=== PATIENT | female | born 1985 | race Caucasian/White ===

== ENCOUNTER 2016-10-24 19:10 | Emergency (ER) | payer OTHER ==
[~2016-10-24 19:10] MED LIST: IBUP80TA PO; PRENTAB9 PO; TYLE325T5 PO
[2016-10-24] MEDS ORDERED: ACETAMINOPHEN 325 MG TAB As Ordered ONE (20:37)
[2016-10-24] MEDS ORDERED: diphenhydrAMINE INJ 50MG/ML VIAL (J1200) As Ordered ONE (20:38)
[2016-10-24] MEDS ORDERED: methylPREDNISolone INJ 125 MG/2 ML VIAL (J2930) As Ordered ONE (20:38)
[2016-10-24] MEDS ORDERED: FAMOTIDINE INJ 20MG/2ML VIAL (S0028) As Ordered ONE (20:38)
[2016-10-24 21:25] LABS: BASO % 0.1 % (0.0-1.0); EOS % 0.7 % (0.0-3.0); LARGE UNSTAINED CELL # 0.1 K/mm3 (0.0-0.4); LARGE UNSTAINED CELL % 2.1 % (0.0-4.0); LYMPH # 1.4 K/mm3 (1.5-6.5); LYMPH % 21.4 % (24.0-44.0); MEAN CORPUSCULAR HEMOGLOBIN 30.3 pg (27.0-33.0); MEAN CORPUSCULAR HGB CONC 33.6 g/dl (32.0-36.5); MEAN CORPUSCULAR VOLUME 90.1 fl (80.0-96.0); MONO # 0.4 K/mm3 (0.0-0.8); MONO % 6.1 % (0.0-5.0); NEUTROPHILS # 4.6 K/mm3 (1.8-7.7); NEUTROPHILS % 69.5 % (36.0-66.0); PLATELET COUNT, AUTOMATED 220 k/mm3 (150-450); RED CELL DISTRIBUTION WIDTH 12.5 % (11.5-14.5); WHITE BLOOD COUNT 6.6 K/mm3 (4.0-10.0)
[2016-10-24 22:27] LABS: ANION GAP 10 MEQ/L (8-16); BLOOD UREA NITROGEN 12 MG/DL (7-18); CALCIUM LEVEL 8.3 MG/DL (8.5-10.1); CARBON DIOXIDE LEVEL 24 MEQ/L (21-32); CHLORIDE LEVEL 104 MEQ/L (98-107); CREATININE FOR GFR 0.91 MG/DL (0.55-1.02); GLOMERULAR FILTRATION RATE > 60.0 (>60); GLUCOSE, FASTING 93 MG/DL (70-105); POTASSIUM SERUM 3.7 MEQ/L (3.5-5.1); SODIUM LEVEL 138 MEQ/L (136-145)
--- NOTE | 2016-10-24 22:53 | EDDOCDS ---
Nurse's Notes [facility] Name: Kalee Betts Age: 31 yrs Sex: Female : 1985 Arrival Date: 10/24/2016 Time: 19:10 Bed 15 Private MD: [facility] Diagnosis: Urticaria;Acute upper respiratory infection, unspecified Presentation: 10/24 19:17 Presenting complaint: Patient states: Patient here for hives. Patient reports chest is jmb tight and hurts to breathe. Patient reports that she is having a congested cough. Adult Sepsis Screening: The patient does not have new or worsening altered mentation. Patient's respiratory rate is less than 22. Systolic blood pressure is greater than 100. Patient has a qSOFA score of 0- Negative Sepsis Screen. Suicide/Homicide risk assessment- the patient denies having any suicidal and/or homicidal ideations and does not present with any other emotional, behavioral or mental health complaints. Status: Patient is not a sales agent financial report service or dependent. Transition of care: patient was not received from another setting of care. 19:17 Acuity: ERNESTINA Level 4 [facility] 19:17 Method Of Arrival: Walkin/Carried/Asstd [facility] Triage Assessment: 19:19 General: Appears in no apparent distress, Behavior is appropriate for age, cooperative. b Pain: Denies pain. Pt Declines HIV testing. Neurological: Level of Consciousness is awake, alert, obeys commands, Oriented to person, place, time, Speech is normal, Facial symmetry appears normal, Facial symmetry: tongue is midline. Respiratory: Airway is patent Respiratory effort is even, unlabored, Respiratory pattern is regular, symmetrical. GI: Abdomen is non- distended. Derm: Skin is pink, warm & dry. Musculoskeletal: Range of motion intact in all extremities. 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 none - PMHx: Asthma; - PSHx: Oophorectomy - unilateral; LEEP Procedure; - Social history: Smoking status: Patient uses tobacco products, heavy tobacco smoker. No barriers to communication noted, The patient speaks fluent Sudanese, Speaks appropriately for age. - Family history: Pertinent for Daughter with similar symptoms.. - : The pt / caregiver states he / she is not on anticoagulants. Home medication list is obtained from the patient. - Exposure Risk Screening:: None identified. Screenin:32 Screening information is obtained from the patient. Fall risk: No risks identified. mv5 Assistance ADL's: requires no assistance with activities of daily living. Abuse/DV Screen: The patient / caregiver reports he/she is: not in a situation that causes fear, pain or injury. Nutritional screening: No deficits noted. Advance Directives: There is no active DNR order. home support is adequate. Assessment: 20:32 General: Appears in no apparent distress, well nourished, well groomed, Behavior is mv5 cooperative, pleasant. Neurological: Level of Consciousness is awake, alert, Oriented to person, place, time. Cardiovascular: Capillary refill < 3 seconds Heart tones S1 S2 present. Respiratory: Airway is patent Respiratory effort is even, unlabored, Respiratory pattern is regular, symmetrical, Breath sounds are clear bilaterally. GI: No deficits noted. : No deficits noted. 21:45 General: Appears in no apparent distress. mv5 22:02 General: Appears in no apparent distress, Pt resting, family at bedside. MD in to mv5 discuss findings and POC. Awaiting complete lab results.. Vital Signs: 19:12 BP 134 / 76; Pulse 97; Resp 18; Temp 101.7(O); Pulse Ox 99% on R/A; Weight 74.84 kg; dem1 Height 5 ft. 8 in. (172.72 cm); Pain 5/10; 22:01 BP 99 / 52; Pulse 77; Resp 16; Temp 99.7(TE); Pulse Ox 99% ; mv5 19:12 Body Mass Index 25.09 (74.84 kg, 172.72 cm) [facility] Vitals: 19:12 Log In Time: October 24, 2016 at 19:00. [facility] ED Course: 19:12 Patient visited by Esequiel Meyers. dem1 19:12 [facility] is Private Physician. dem1 19:12 Patient moved to Waiting dem1 19:13 Patient moved to Pre R[facility] 19:18 Triage Initiated jmb 20:04 Charleen Carey,RN is Primary Nurse. kc3 20:04 Mikael Samayoa MD is Attending Physician. br1 20:04 Patient moved to [facility] 20:27 Patient visited by Mikael Samayoa MD. br1 20:32 The patient / caregiver is instructed regarding the plan of care and ED course. mv5 21:12 BMP Sent. mv5 21:12 CBC with Diff Sent. mv5 21:12 Inserted saline lock: 20 gauge in right antecubital area and blood collected. The mv5 patient tolerated the procedure well. 21:17 Patient moved to Radiology mino 21:19 Patient moved to 15 mino 21:42 [facility] [place] was scanned into [employer] and attached to record. zo 21:45 Patient visited by Charleen Carey RN. mv5 22:01 GATS (NEGATIVE STREP SCREEN) Sent. mv5 22:33 Patient visited by Mikael Samayoa MD. br1 22:37 [facility] is Referral Physician. br1 22:51 No procedures done that require assistance. mv5 22:51 Discontinued intact, bleeding controlled, pressure dressing applied, No mv5 redness/swelling at site. Administered Medications: 20:41 Drug: Acetaminophen 650 mg [acetaminophen 325 mg tablet (2 tabs)] Route: PO; mv5 21:56 Follow up: Response: No Adverse Reaction mv5 21:11 Drug: diphenhydrAMINE 50 mg [diphenhydramine 50 mg/mL injection solution (1 mL)] Route: mv5 IVP; Site: right antecubital; 21:56 Follow up: Response: No Adverse Reaction mv5 21:11 Drug: Famotidine 40 mg [famotidine 10 mg/mL intravenous solution (4 mL)] Route: IVP; mv5 Site: right antecubital; 21:56 Follow up: Response: No Adverse Reaction mv5 21:11 Drug: Solu-MEDROL 125 mg [Solu-Medrol 500 mg intravenous solution (125 mg)] Route: IVP; mv5 Site: right antecubital; 21:56 Follow up: Response: No Adverse Reaction mv5 Order Results: Lab Order: CBC with Diff; SPEC'M 10/24/16 20:52 Test: WHITE BLOOD COUNT; Value: 6.6; Range: 4.0-10.0; Units: K/mm3; Status: F Test: RED BLOOD COUNT; Value: 4.66; Range: 4.00-5.40; Units: M/mm3; Status: F Test: HEMOGLOBIN; Value: 14.1; Range: 12.0-16.0; Units: g/dl; Status: F Test: HEMATOCRIT; Value: 42.0; Range: 36.0-47.0; Units: %; Status: F Test: MEAN CORPUSCULAR VOLUME; Value: 90.1; Range: 80.0-96.0; Units: fl; Status: F Test: MEAN CORPUSCULAR HEMOGLOBIN; Value: 30.3; Range: 27.0-33.0; Units: pg; Status: F Test: MEAN CORPUSCULAR HGB CONC; Value: 33.6; Range: 32.0-36.5; Units: g/dl; Status: F Test: RED CELL DISTRIBUTION WIDTH; Value: 12.5; Range: 11.5-14.5; Units: %; Status: F Test: PLATELET COUNT, AUTOMATED; Value: 220; Range: 150-450; Units: k/mm3; Status: F Test: NEUTROPHILS %; Value: 69.5; Range: 36.0-66.0; Abnormal: Above high normal; Units: %; Status: F Test: LYMPH %; Value: 21.4; Range: 24.0-44.0; Abnormal: Below low normal; Units: %; Status: F Test: MONO %; Value: 6.1; Range: 0.0-5.0; Abnormal: Above high normal; Units: %; Status: F Test: EOS %; Value: 0.7; Range: 0.0-3.0; Units: %; Status: F Test: BASO %; Value: 0.1; Range: 0.0-1.0; Units: %; Status: F Test: LARGE UNSTAINED CELL %; Value: 2.1; Range: 0.0-4.0; Units: %; Status: F Test: NEUTROPHILS #; Value: 4.6; Range: 1.8-7.7; Units: K/mm3; Status: F Test: LYMPH #; Value: 1.4; Range: 1.5-6.5; Abnormal: Below low normal; Units: K/mm3; Status: F Test: MONO #; Value: 0.4; Range: 0.0-0.8; Units: K/mm3; Status: F Test: EOS #; Value: 0.0; Range: 0.0-0.50; Units: K/mm3; Status: F Test: BASO #; Value: 0.0; Range: 0.0-0.2; Units: K/mm3; Status: F Test: LARGE UNSTAINED CELL #; Value: 0.1; Range: 0.0-0.4; Units: K/mm3; Status: F Lab Order: BMP; SPEC'M 10/24/16 21:48 Test: GLUCOSE, FASTING; Value: 93; Range: 70-105; Units: MG/DL; Status: F Test: BLOOD UREA NITROGEN; Value: 12; Range: 7-18; Units: MG/DL; Status: F Test: CREATININE FOR GFR; Value: 0.91; Range: 0.55-1.02; Units: MG/DL; Status: F Test: GLOMERULAR FILTRATION RATE; Value: > 60.0; Range: >60; Status: F Test: SODIUM LEVEL; Value: 138; Range: 136-145; Units: MEQ/L; Status: F Test: POTASSIUM SERUM; Value: 3.7; Range: 3.5-5.1; Units: MEQ/L; Status: F Test: CHLORIDE LEVEL; Value: 104; Range: 98-107; Units: MEQ/L; Status: F Test: CARBON DIOXIDE LEVEL; Value: 24; Range: 21-32; Units: MEQ/L; Status: F Test: ANION GAP; Value: 10; Range: 8-16; Units: MEQ/L; Status: F Test: CALCIUM LEVEL; Value: 8.3; Range: 8.5-10.1; Abnormal: Below low normal; Units: MG/DL; Status: F Test Note: ; Units are mL/min/1.73 m2 Chronic Kidney Disease Staging per NKF: Stage I & II GFR >=60 Normal to Mildly Decreased Stage III GFR 30-59 Moderately Decreased Stage IV GFR 15-29 Severely Decreased Stage V GFR <15 Very Little GFR Left ESRD GFR <15 on PACKAGE DYER Lab Order: -Influenza A&B Rapid Antigen - Nose; SPEC'M 10/24/16 20:52 Test: INFLUENZA A RAPID SCR by ICA; Value: INFLUENZA A RESULTS NEGATIVE; Status: F Test: INFLUENZA A RAPID SCR by ICA; Value: Comments:; Status: F Test: INFLUENZA B RAPID SCR by ICA; Value: INFLUENZA B RESULTS NEGATIVE; Status: F Test Note: ; The Influenza test is a direct rapid immunoassay for the qualitative detection of Influenza viral antigen. Cell culture (Viral Culture) testing should be considered to confirm NEGATIVE results and to assist in detecting other viruses that can provide similar clinical symptoms. Please contact the lab within 24 hours ([phone]) if confirmatory testing is desired. Outcome: 22:37 Discharge ordered by Provider. br1 22:51 Discharge Assessment: Patient awake, alert and oriented x 3. No cognitive and/or mv5 functional deficits noted. Patient verbalized understanding of disposition instructions. Discharge Assessment: patient administered narcotics - no. The following High Risk Discharge criteria are identified: None. Discharged to home. Condition: stable. Discharge instructions given to patient, Demonstrated understanding of Pt was receptive of discharge instructions/ teaching. No special radiology studies were completed. Property sent home with patient. 22:52 Patient left the ED. mv5 Signatures: Fazal Ya Zoeann zo Roggie, Brian, MD MD br1 Esequiel Meyers1 Dominik Patel,RN RN zurib Kim Horne,TARYN RN kc3 Charleen Carey,RN RN mv5 MTDD
--- NOTE | 2016-10-24 22:53 | EDDOCDS ---
Physician Documentation [facility] Name: Kalee Betts Age: 31 yrs Sex: Female : 1985 Arrival Date: 10/24/2016 Time: 19:10 Bed 15 Private MD: [facility] Disposition: 10/24/16 22:37 Discharged to Home/Self Care. Impression: Urticaria, Acute upper respiratory infection, unspecified. - Condition is Stable. - Discharge Instructions: Fever, Adult, Hives, Upper Respiratory Infection, Adult. - Prescriptions for Prednisone 20 mg Oral Tablet - take 2 tablets by ORAL route once daily for 4 days; 8 tablet. - Work Release Form - 2 day, Medication Reconciliation, Local Pharmacy Hours form. - Follow up: [facility]; When: 1 - 2 days; Reason: Recheck today's complaints. - Problem is new. - Symptoms have improved. - Notes: You were seen in the ED for your hives and fever with runny nose, sore throat and congestion concerning for upper respiratory infection. Bloodwork along with flu, strep and chest XRay were negative. You were treated and improved with medications. You may return home to continue Benadryl every 6 hours as needed for hives or itching and prednisone daily for 4 more days. You may take Tylenol and Ibuprofen as needed for fever. Return to the ED for any worsening symptoms, uncontrolled fever, swelling of the lips, tongue or throat, trouble breathing or speaking or swallowing, or any other concerns. Call your doctor in the morning to arrange to be seen tomorrow for recheck - a work note has been provided. Historical: - Allergies: Latex; - Home Meds: 1. none - PMHx: Asthma; - PSHx: Oophorectomy - unilateral; LEEP Procedure; - Social history: Smoking status: Patient uses tobacco products, heavy tobacco smoker. No barriers to communication noted, The patient speaks fluent Bulgarian, Speaks appropriately for age. - Family history: Pertinent for Daughter with similar symptoms.. - : The pt / caregiver states he / she is not on anticoagulants. Home medication list is obtained from the patient. - Exposure Risk Screening:: None identified. 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 8 in. (172.72 cm); Pain 5/10; 22:01 BP 99 / 52; Pulse 77; Resp 16; Temp 99.7(TE); Pulse Ox 99% ; mv5 19:12 Body Mass Index 25.09 (74.84 kg, 172.72 cm) dem1 MDM: 20:27 IV Saline Lock ordered. br1 20:27 Acetaminophen Tablet 650 mg PO once ordered. br1 20:27 diphenhydrAMINE 50 mg IVP once ordered. br1 20:28 CBC with Diff Ordered. EDMS 20:28 BMP Ordered. EDMS 20:28 Famotidine 40 mg IVP once ordered. br1 20:28 Solu-MEDROL 125 mg IVP once ordered. br1 20:28 Strep Screen, Nursing ordered. br1 20:29 Chest, 2 View (pa\E\lat) Ordered. EDMS 20:29 -Influenza A&B Rapid Antigen - Nose Ordered. EDMS 21:21 Financial registration complete. zo 21:42 [facility] Payment Agreement was scanned into [employer] and attached to record. zo 21:48 CBC with Diff Reviewed. br1 21:48 -Influenza A&B Rapid Antigen - Nose Reviewed. br1 21:51 Recheck Vital Signs, perform reassessment and enter into [employer] ordered. br1 21:57 GATS (NEGATIVE STREP SCREEN) Ordered. EDMS 22:31 BMP Reviewed. br1 Administered Medications: 20:41 Drug: Acetaminophen 650 mg [acetaminophen 325 mg tablet (2 tabs)] Route: PO; mv5 21:56 Follow up: Response: No Adverse Reaction mv5 21:11 Drug: diphenhydrAMINE 50 mg [diphenhydramine 50 mg/mL injection solution (1 mL)] Route: mv5 IVP; Site: right antecubital; 21:56 Follow up: Response: No Adverse Reaction mv5 21:11 Drug: Famotidine 40 mg [famotidine 10 mg/mL intravenous solution (4 mL)] Route: IVP; mv5 Site: right antecubital; 21:56 Follow up: Response: No Adverse Reaction mv5 21:11 Drug: Solu-MEDROL 125 mg [Solu-Medrol 500 mg intravenous solution (125 mg)] Route: IVP; mv5 Site: right antecubital; 21:56 Follow up: Response: No Adverse Reaction mv5 Signatures: Dispatcher [employer] Surendra Orantes Brian, MD MD br1 Dominik Patel RN RN Charleen Julien RN RN mv5 The chart was reviewed and I authenticate all verbal orders and agree with the evaluation and treatment provided.Attachments: 21:42 [facility] Payment Agreement zo MTDD
--- NOTE | 2016-10-25 01:53 | REP ---
Clinical: Acute cough . Comparison: 05/25/2011 . Technique: PA and lateral. Findings: The mediastinum and cardiac silhouette are normal. The lung feng are clear and without acute consolidation, effusion, or pneumothorax. The skeletal structures are intact and normal. Impression: 1. No acute cardiopulmonary process. Signed by Srinivasa Faith MD 10/25/2016 01:44 A
--- NOTE | 2016-10-26 23:54 | EDDOCDS ---
Nurse's Notes [facility] Name: Kalee Betts Age: 31 yrs Sex: Female : 1985 Arrival Date: 10/24/2016 Time: 19:10 Bed 15 Private MD: [facility] Diagnosis: Urticaria;Acute upper respiratory infection, unspecified Presentation: 10/24 19:17 Presenting complaint: Patient states: Patient here for hives. Patient reports chest is jmb tight and hurts to breathe. Patient reports that she is having a congested cough. Adult Sepsis Screening: The patient does not have new or worsening altered mentation. Patient's respiratory rate is less than 22. Systolic blood pressure is greater than 100. Patient has a qSOFA score of 0- Negative Sepsis Screen. Suicide/Homicide risk assessment- the patient denies having any suicidal and/or homicidal ideations and does not present with any other emotional, behavioral or mental health complaints. Status: Patient is not a surgical services coordinator or dependent. Transition of care: patient was not received from another setting of care. 19:17 Acuity: ERNESTINA Level 4 [facility] 19:17 Method Of Arrival: Walkin/Carried/Asstd [facility] Triage Assessment: 19:19 General: Appears in no apparent distress, Behavior is appropriate for age, cooperative. b Pain: Denies pain. Pt Declines HIV testing. Neurological: Level of Consciousness is awake, alert, obeys commands, Oriented to person, place, time, Speech is normal, Facial symmetry appears normal, Facial symmetry: tongue is midline. Respiratory: Airway is patent Respiratory effort is even, unlabored, Respiratory pattern is regular, symmetrical. GI: Abdomen is non- distended. Derm: Skin is pink, warm & dry. Musculoskeletal: Range of motion intact in all extremities. 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 none - PMHx: Asthma; - PSHx: Oophorectomy - unilateral; LEEP Procedure; - Social history: Smoking status: Patient uses tobacco products, heavy tobacco smoker. No barriers to communication noted, The patient speaks fluent Cape Verdean, Speaks appropriately for age. - Family history: Pertinent for Daughter with similar symptoms.. - : The pt / caregiver states he / she is not on anticoagulants. Home medication list is obtained from the patient. - Exposure Risk Screening:: None identified. Screenin:32 Screening information is obtained from the patient. Fall risk: No risks identified. mv5 Assistance ADL's: requires no assistance with activities of daily living. Abuse/DV Screen: The patient / caregiver reports he/she is: not in a situation that causes fear, pain or injury. Nutritional screening: No deficits noted. Advance Directives: There is no active DNR order. home support is adequate. Assessment: 20:32 General: Appears in no apparent distress, well nourished, well groomed, Behavior is mv5 cooperative, pleasant. Neurological: Level of Consciousness is awake, alert, Oriented to person, place, time. Cardiovascular: Capillary refill < 3 seconds Heart tones S1 S2 present. Respiratory: Airway is patent Respiratory effort is even, unlabored, Respiratory pattern is regular, symmetrical, Breath sounds are clear bilaterally. GI: No deficits noted. : No deficits noted. 21:45 General: Appears in no apparent distress. mv5 22:02 General: Appears in no apparent distress, Pt resting, family at bedside. MD in to mv5 discuss findings and POC. Awaiting complete lab results.. Vital Signs: 19:12 BP 134 / 76; Pulse 97; Resp 18; Temp 101.7(O); Pulse Ox 99% on R/A; Weight 74.84 kg; dem1 Height 5 ft. 8 in. (172.72 cm); Pain 5/10; 22:01 BP 99 / 52; Pulse 77; Resp 16; Temp 99.7(TE); Pulse Ox 99% ; mv5 19:12 Body Mass Index 25.09 (74.84 kg, 172.72 cm) [facility] Vitals: 19:12 Log In Time: October 24, 2016 at 19:00. [facility] ED Course: 19:12 Patient visited by Esequiel Meyers. dem1 19:12 [facility] is Private Physician. dem1 19:12 Patient moved to Waiting dem1 19:13 Patient moved to Pre RCE [facility]1 19:18 Triage Initiated jmb 20:04 Charleen Carey,RN is Primary Nurse. kc3 20:04 Mikael Samayoa MD is Attending Physician. br1 20:04 Patient moved to [facility] 20:27 Patient visited by Mikael Samayoa MD. br1 20:32 The patient / caregiver is instructed regarding the plan of care and ED course. mv5 21:12 BMP Sent. mv5 21:12 CBC with Diff Sent. mv5 21:12 Inserted saline lock: 20 gauge in right antecubital area and blood collected. The mv5 patient tolerated the procedure well. 21:17 Patient moved to Radiology mino 21:19 Patient moved to 15 mino 21:42 [facility] Payment Agreement was scanned into [employer] and attached to record. zo 21:45 Patient visited by Charleen aCrey RN. mv5 22:01 GATS (NEGATIVE STREP SCREEN) Sent. mv5 22:33 Patient visited by Mikael Samayoa MD. br1 22:37 [facility] is Referral Physician. br1 22:51 No procedures done that require assistance. mv5 22:51 Discontinued intact, bleeding controlled, pressure dressing applied, No mv5 redness/swelling at site. 0207 02:05 Chest, 2 View (pa\E\lat) Returned. EDMS 12:47 T-Sheet-- Draft Copy was scanned into [employer] and attached to record. gb Administered Medications: 02 20:41 Drug: Acetaminophen 650 mg [acetaminophen 325 mg tablet (2 tabs)] Route: PO; mv5 21:56 Follow up: Response: No Adverse Reaction mv5 21:11 Drug: diphenhydrAMINE 50 mg [diphenhydramine 50 mg/mL injection solution (1 mL)] Route: mv5 IVP; Site: right antecubital; 21:56 Follow up: Response: No Adverse Reaction mv5 21:11 Drug: Famotidine 40 mg [famotidine 10 mg/mL intravenous solution (4 mL)] Route: IVP; mv5 Site: right antecubital; 21:56 Follow up: Response: No Adverse Reaction mv5 21:11 Drug: Solu-MEDROL 125 mg [Solu-Medrol 500 mg intravenous solution (125 mg)] Route: IVP; mv5 Site: right antecubital; 21:56 Follow up: Response: No Adverse Reaction mv5 Order Results: Lab Order: CBC with Diff; SPEC'M 10/24/16 20:52 Test: WHITE BLOOD COUNT; Value: 6.6; Range: 4.0-10.0; Units: K/mm3; Status: F Test: RED BLOOD COUNT; Value: 4.66; Range: 4.00-5.40; Units: M/mm3; Status: F Test: HEMOGLOBIN; Value: 14.1; Range: 12.0-16.0; Units: g/dl; Status: F Test: HEMATOCRIT; Value: 42.0; Range: 36.0-47.0; Units: %; Status: F Test: MEAN CORPUSCULAR VOLUME; Value: 90.1; Range: 80.0-96.0; Units: fl; Status: F Test: MEAN CORPUSCULAR HEMOGLOBIN; Value: 30.3; Range: 27.0-33.0; Units: pg; Status: F Test: MEAN CORPUSCULAR HGB CONC; Value: 33.6; Range: 32.0-36.5; Units: g/dl; Status: F Test: RED CELL DISTRIBUTION WIDTH; Value: 12.5; Range: 11.5-14.5; Units: %; Status: F Test: PLATELET COUNT, AUTOMATED; Value: 220; Range: 150-450; Units: k/mm3; Status: F Test: NEUTROPHILS %; Value: 69.5; Range: 36.0-66.0; Abnormal: Above high normal; Units: %; Status: F Test: LYMPH %; Value: 21.4; Range: 24.0-44.0; Abnormal: Below low normal; Units: %; Status: F Test: MONO %; Value: 6.1; Range: 0.0-5.0; Abnormal: Above high normal; Units: %; Status: F Test: EOS %; Value: 0.7; Range: 0.0-3.0; Units: %; Status: F Test: BASO %; Value: 0.1; Range: 0.0-1.0; Units: %; Status: F Test: LARGE UNSTAINED CELL %; Value: 2.1; Range: 0.0-4.0; Units: %; Status: F Test: NEUTROPHILS #; Value: 4.6; Range: 1.8-7.7; Units: K/mm3; Status: F Test: LYMPH #; Value: 1.4; Range: 1.5-6.5; Abnormal: Below low normal; Units: K/mm3; Status: F Test: MONO #; Value: 0.4; Range: 0.0-0.8; Units: K/mm3; Status: F Test: EOS #; Value: 0.0; Range: 0.0-0.50; Units: K/mm3; Status: F Test: BASO #; Value: 0.0; Range: 0.0-0.2; Units: K/mm3; Status: F Test: LARGE UNSTAINED CELL #; Value: 0.1; Range: 0.0-0.4; Units: K/mm3; Status: F Lab Order: BMP; SPEC'M 10/24/16 21:48 Test: GLUCOSE, FASTING; Value: 93; Range: 70-105; Units: MG/DL; Status: F Test: BLOOD UREA NITROGEN; Value: 12; Range: 7-18; Units: MG/DL; Status: F Test: CREATININE FOR GFR; Value: 0.91; Range: 0.55-1.02; Units: MG/DL; Status: F Test: GLOMERULAR FILTRATION RATE; Value: > 60.0; Range: >60; Status: F Test: SODIUM LEVEL; Value: 138; Range: 136-145; Units: MEQ/L; Status: F Test: POTASSIUM SERUM; Value: 3.7; Range: 3.5-5.1; Units: MEQ/L; Status: F Test: CHLORIDE LEVEL; Value: 104; Range: 98-107; Units: MEQ/L; Status: F Test: CARBON DIOXIDE LEVEL; Value: 24; Range: 21-32; Units: MEQ/L; Status: F Test: ANION GAP; Value: 10; Range: 8-16; Units: MEQ/L; Status: F Test: CALCIUM LEVEL; Value: 8.3; Range: 8.5-10.1; Abnormal: Below low normal; Units: MG/DL; Status: F Test Note: ; Units are mL/min/1.73 m2 Chronic Kidney Disease Staging per NKF: Stage I & II GFR >=60 Normal to Mildly Decreased Stage III GFR 30-59 Moderately Decreased Stage IV GFR 15-29 Severely Decreased Stage V GFR <15 Very Little GFR Left ESRD GFR <15 on PRINTING [employer]OTH TENDER Lab Order: -Influenza A&B Rapid Antigen - Nose; SPEC'M 10/24/16 20:52 Test: INFLUENZA A RAPID SCR by ICA; Value: INFLUENZA A RESULTS NEGATIVE; Status: F Test: INFLUENZA A RAPID SCR by ICA; Value: Comments:; Status: F Test: INFLUENZA B RAPID SCR by ICA; Value: INFLUENZA B RESULTS NEGATIVE; Status: F Test Note: ; The Influenza test is a direct rapid immunoassay for the qualitative detection of Influenza viral antigen. Cell culture (Viral Culture) testing should be considered to confirm NEGATIVE results and to assist in detecting other viruses that can provide similar clinical symptoms. Please contact the lab within 24 hours ([phone]) if confirmatory testing is desired. Lab Order: GATS (NEGATIVE STREP SCREEN); SPEC'M 10/24/16 21:55 Test: GATS CULTURE (NEG STREP SCR); Value: GATS RESULT NEGATIVE FOR STREP PYOGENES (GROUP A); Status: F Test: GATS CULTURE (NEG STREP SCR); Value: <EXTERNAL COMMENT eCWMed> FULL REPORT IN LAB NOTES (eCW and Medent).; Status: F Radiology Order: Chest, 2 View (pa\E\lat) Test: Chest, 2 View (pa\E\lat) REASON FOR EXAMINATION: Cough; Clinical: Acute cough .; ; Comparison: 05/25/2011 .; ; Technique: PA and lateral.; ; Findings:; The mediastinum and cardiac silhouette are normal. The lung feng are clear and; without acute consolidation, effusion, or pneumothorax. The skeletal structures; are intact and normal.; ; Impression:; 1. No acute cardiopulmonary process.; ; ; Signed by; Srinivasa Faith MD 10/25/2016 01:44 A; Outcome: 22:37 Discharge ordered by Provider. br1 22:51 Discharge Assessment: Patient awake, alert and oriented x 3. No cognitive and/or mv5 functional deficits noted. Patient verbalized understanding of disposition instructions. Discharge Assessment: patient administered narcotics - no. The following High Risk Discharge criteria are identified: None. Discharged to home. Condition: stable. Discharge instructions given to patient, Demonstrated understanding of Pt was receptive of discharge instructions/ teaching. No special radiology studies were completed. Property sent home with patient. 22:52 Patient left the ED. mv5 Signatures: Dispatcher MedHost EDMS Fazal Ya Gloria, Reg Reg gb [place], Mikael Jones MD MD br1 Esequiel Meyers1 Dominik Patel,RN RN jmb Kim Horne,RN RN kc3 Charleen CareyRN RN mv5 Chart Complete MTDСергей
--- NOTE | 2016-10-26 23:54 | EDDOCDS ---
Physician Documentation [facility] Name: Kalee Betts Age: 31 yrs Sex: Female : 1985 Arrival Date: 10/24/2016 Time: 19:10 Bed 15 Private MD: [facility] Disposition: 10/24/16 22:37 Discharged to Home/Self Care. Impression: Urticaria, Acute upper respiratory infection, unspecified. - Condition is Stable. - Discharge Instructions: Fever, Adult, Hives, Upper Respiratory Infection, Adult. - Prescriptions for Prednisone 20 mg Oral Tablet - take 2 tablets by ORAL route once daily for 4 days; 8 tablet. - Work Release Form - 2 day, Medication Reconciliation, Local Pharmacy Hours form. - Follow up: [facility]; When: 1 - 2 days; Reason: Recheck today's complaints. - Problem is new. - Symptoms have improved. - Notes: You were seen in the ED for your hives and fever with runny nose, sore throat and congestion concerning for upper respiratory infection. Bloodwork along with flu, strep and chest XRay were negative. You were treated and improved with medications. You may return home to continue Benadryl every 6 hours as needed for hives or itching and prednisone daily for 4 more days. You may take Tylenol and Ibuprofen as needed for fever. Return to the ED for any worsening symptoms, uncontrolled fever, swelling of the lips, tongue or throat, trouble breathing or speaking or swallowing, or any other concerns. Call your doctor in the morning to arrange to be seen tomorrow for recheck - a work note has been provided. Historical: - Allergies: Latex; - Home Meds: 1. none - PMHx: Asthma; - PSHx: Oophorectomy - unilateral; LEEP Procedure; - Social history: Smoking status: Patient uses tobacco products, heavy tobacco smoker. No barriers to communication noted, The patient speaks fluent Slovenian, Speaks appropriately for age. - Family history: Pertinent for Daughter with similar symptoms.. - : The pt / caregiver states he / she is not on anticoagulants. Home medication list is obtained from the patient. - Exposure Risk Screening:: None identified. 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 8 in. (172.72 cm); Pain 5/10; 22:01 BP 99 / 52; Pulse 77; Resp 16; Temp 99.7(TE); Pulse Ox 99% ; mv5 19:12 Body Mass Index 25.09 (74.84 kg, 172.72 cm) dem1 MDM: 20:27 IV Saline Lock ordered. br1 20:27 Acetaminophen Tablet 650 mg PO once ordered. br1 20:27 diphenhydrAMINE 50 mg IVP once ordered. br1 20:28 CBC with Diff Ordered. EDMS 20:28 BMP Ordered. EDMS 20:28 Famotidine 40 mg IVP once ordered. br1 20:28 Solu-MEDROL 125 mg IVP once ordered. br1 20:28 Strep Screen, Nursing ordered. br1 20:29 Chest, 2 View (pa\E\lat) Ordered. EDMS 20:29 -Influenza A&B Rapid Antigen - Nose Ordered. EDMS 21:21 Financial registration complete. zo 21:42 [facility] Payment Agreement was scanned into [employer] and attached to record. zo 21:48 CBC with Diff Reviewed. br1 21:48 -Influenza A&B Rapid Antigen - Nose Reviewed. br1 21:51 Recheck Vital Signs, perform reassessment and enter into MedHost ordered. br1 21:57 GATS (NEGATIVE STREP SCREEN) Ordered. EDMS 22:31 BMP Reviewed. br1 10/25 12:47 T-Sheet-- Draft Copy was scanned into [employer] and attached to record. gb Administered Medications: 10/24 20:41 Drug: Acetaminophen 650 mg [acetaminophen 325 mg tablet (2 tabs)] Route: PO; mv5 21:56 Follow up: Response: No Adverse Reaction mv5 21:11 Drug: diphenhydrAMINE 50 mg [diphenhydramine 50 mg/mL injection solution (1 mL)] Route: mv5 IVP; Site: right antecubital; 21:56 Follow up: Response: No Adverse Reaction mv5 21:11 Drug: Famotidine 40 mg [famotidine 10 mg/mL intravenous solution (4 mL)] Route: IVP; mv5 Site: right antecubital; 21:56 Follow up: Response: No Adverse Reaction mv5 21:11 Drug: Solu-MEDROL 125 mg [Solu-Medrol 500 mg intravenous solution (125 mg)] Route: IVP; mv5 Site: right antecubital; 21:56 Follow up: Response: No Adverse Reaction mv5 Signatures: Dispatcher MedHost EDIzzy Bellamy, Reg Reg gb Surendra Simpson Brian, MD MD br1 Dominik Patel RN RN zurib Charleen Carey RN RN mv5 The chart was reviewed and I authenticate all verbal orders and agree with the evaluation and treatment provided.Attachments: 21:42 [facility] Payment Agreement zo 10/25 12:47 T-Sheet-- Draft Copy gb Chart Complete MTDD
--- NOTE | 2016-10-26 23:54 | EDDOCDS ---
Physician Documentation [facility] Name: Kalee Betts Age: 31 yrs Sex: Female : 1985 Arrival Date: 10/24/2016 Time: 19:10 Bed 15 Private MD: [facility] Disposition: 10/24/16 22:37 Discharged to Home/Self Care. Impression: Urticaria, Acute upper respiratory infection, unspecified. - Condition is Stable. - Discharge Instructions: Fever, Adult, Hives, Upper Respiratory Infection, Adult. - Prescriptions for Prednisone 20 mg Oral Tablet - take 2 tablets by ORAL route once daily for 4 days; 8 tablet. - Work Release Form - 2 day, Medication Reconciliation, Local Pharmacy Hours form. - Follow up: [facility]; When: 1 - 2 days; Reason: Recheck today's complaints. - Problem is new. - Symptoms have improved. - Notes: You were seen in the ED for your hives and fever with runny nose, sore throat and congestion concerning for upper respiratory infection. Bloodwork along with flu, strep and chest XRay were negative. You were treated and improved with medications. You may return home to continue Benadryl every 6 hours as needed for hives or itching and prednisone daily for 4 more days. You may take Tylenol and Ibuprofen as needed for fever. Return to the ED for any worsening symptoms, uncontrolled fever, swelling of the lips, tongue or throat, trouble breathing or speaking or swallowing, or any other concerns. Call your doctor in the morning to arrange to be seen tomorrow for recheck - a work note has been provided. Historical: - Allergies: Latex; - Home Meds: 1. none - PMHx: Asthma; - PSHx: Oophorectomy - unilateral; LEEP Procedure; - Social history: Smoking status: Patient uses tobacco products, heavy tobacco smoker. No barriers to communication noted, The patient speaks fluent Greek, Speaks appropriately for age. - Family history: Pertinent for Daughter with similar symptoms.. - : The pt / caregiver states he / she is not on anticoagulants. Home medication list is obtained from the patient. - Exposure Risk Screening:: None identified. 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 8 in. (172.72 cm); Pain 5/10; 22:01 BP 99 / 52; Pulse 77; Resp 16; Temp 99.7(TE); Pulse Ox 99% ; mv5 19:12 Body Mass Index 25.09 (74.84 kg, 172.72 cm) dem1 MDM: 20:27 IV Saline Lock ordered. br1 20:27 Acetaminophen Tablet 650 mg PO once ordered. br1 20:27 diphenhydrAMINE 50 mg IVP once ordered. br1 20:28 CBC with Diff Ordered. EDMS 20:28 BMP Ordered. EDMS 20:28 Famotidine 40 mg IVP once ordered. br1 20:28 Solu-MEDROL 125 mg IVP once ordered. br1 20:28 Strep Screen, Nursing ordered. br1 20:29 Chest, 2 View (pa\E\lat) Ordered. EDMS 20:29 -Influenza A&B Rapid Antigen - Nose Ordered. EDMS 21:21 Financial registration complete. zo 21:42 [facility] Payment Agreement was scanned into [employer] and attached to record. zo 21:48 CBC with Diff Reviewed. br1 21:48 -Influenza A&B Rapid Antigen - Nose Reviewed. br1 21:51 Recheck Vital Signs, perform reassessment and enter into MedHost ordered. br1 21:57 GATS (NEGATIVE STREP SCREEN) Ordered. EDMS 22:31 BMP Reviewed. br1 10/25 12:47 T-Sheet-- Draft Copy was scanned into [employer] and attached to record. gb Administered Medications: 10/24 20:41 Drug: Acetaminophen 650 mg [acetaminophen 325 mg tablet (2 tabs)] Route: PO; mv5 21:56 Follow up: Response: No Adverse Reaction mv5 21:11 Drug: diphenhydrAMINE 50 mg [diphenhydramine 50 mg/mL injection solution (1 mL)] Route: mv5 IVP; Site: right antecubital; 21:56 Follow up: Response: No Adverse Reaction mv5 21:11 Drug: Famotidine 40 mg [famotidine 10 mg/mL intravenous solution (4 mL)] Route: IVP; mv5 Site: right antecubital; 21:56 Follow up: Response: No Adverse Reaction mv5 21:11 Drug: Solu-MEDROL 125 mg [Solu-Medrol 500 mg intravenous solution (125 mg)] Route: IVP; mv5 Site: right antecubital; 21:56 Follow up: Response: No Adverse Reaction mv5 Signatures: Dispatcher MedHost EDIzzy Bellamy, Reg Reg gb Surendra Simpson Brian, MD MD br1 Dominik Patel RN RN zurib Charleen Carey RN RN mv5 The chart was reviewed and I authenticate all verbal orders and agree with the evaluation and treatment provided.Attachments: 21:42 [facility] Payment Agreement zo 10/25 12:47 T-Sheet-- Draft Copy gb Chart Complete MTDD
== END 2016-10-24 22:52 | disposition home or self-care (01) ==
LOC: M ED 19:10
DX: L50.9 Urticaria, unspecified (principal); J06.9 Acute upper respiratory infection, unspecified; J45.909 Unspecified asthma, uncomplicated; Z91.040 Latex allergy status; F17.210 Nicotine dependence, cigarettes, uncomplicated
CPT/HCPCS: 36415; 71020; 80048; 85025; 87804; 96374; 96375; 99284; J1200; J2930

== ENCOUNTER 2017-04-20 07:58 | Emergency (ER) | payer OTHER ==
[~2017-04-20] VITALS: Ht 172.7 cm; Wt 80.0 kg
[2017-04-20] MEDS ORDERED: PHENAZOPYRIDINE 100 MG TAB PO ONE (10:00)
[2017-04-20] MEDS ORDERED: NITROFURANTOIN (MACROBID) 100 MG CAP PO ONE (10:00)
[2017-04-20] MEDS ORDERED: MACR100C43 PO (10:07)
[2017-04-20] MEDS ORDERED: PYRI1TAB5 PO (10:07)
[2017-04-20 10:16] VITALS: BP 109/65
== END 2017-04-20 10:17 | disposition home or self-care (01) ==
LOC: M ED 07:58
DX: N39.0 Urinary tract infection, site not specified (principal); R31.9 Hematuria, unspecified; F17.210 Nicotine dependence, cigarettes, uncomplicated; Z91.040 Latex allergy status

== ENCOUNTER → 2017-11-16 | Outpatient (REF) | payer OTHER ==
[2017-11-16 18:30] LABS: HEMATOCRIT 38.3 % (36.0-47.0); HEMOGLOBIN 12.6 g/dl (12.0-16.0); MEAN CORPUSCULAR HEMOGLOBIN 29.9 pg (27.0-33.0); MEAN CORPUSCULAR HGB CONC 32.9 g/dl (32.0-36.5); MEAN CORPUSCULAR VOLUME 90.8 fl (80.0-96.0); PLATELET COUNT, AUTOMATED 270 10^3/uL (150-450); RED BLOOD COUNT 4.22 10^6/uL (4.00-5.40); RED CELL DISTRIBUTION WIDTH 13.3 % (11.5-14.5); WHITE BLOOD COUNT 9.8 10^3/uL (4.0-10.0)
[2017-11-16 19:08] LABS: HCG, SERUM QUANTITATIVE 22370 MIU/ML
[2017-11-17 10:53] LABS: HIV 1&2 SCREEN CENTAUR NEGATIVE (NEGATIVE)
[2017-11-17 10:56] LABS: HBsAg Prenatal NEGATIVE (NEGATIVE)
[2017-11-17 12:13] LABS: RUBELLA IgG QUALITATIVE IMMUNE (IMMUNE)
== END ==
LOC: M LAB REF 17:00
DX: Z32.01 Encounter for pregnancy test, result positive (principal); O36.80X0 Pregnancy with inconclusive fetal viability, not applicable or unspecified; Z3A.00 Weeks of gestation of pregnancy not specified
CPT/HCPCS: 86762

== ENCOUNTER → 2018-04-20 | Outpatient (CLI) | payer OTHER ==
[2018-04-20 13:28] LABS: MEAN CORPUSCULAR HEMOGLOBIN 30.5 pg (27.0-33.0); MEAN CORPUSCULAR HGB CONC 33.3 g/dl (32.0-36.5); MEAN CORPUSCULAR VOLUME 91.6 fl (80.0-96.0); PLATELET COUNT, AUTOMATED 266 10^3/uL (150-450); RED BLOOD COUNT 3.93 10^6/uL (4.00-5.40); RED CELL DISTRIBUTION WIDTH 14.3 % (11.5-14.5); WHITE BLOOD COUNT 13.6 10^3/uL (4.0-10.0)
[2018-04-23 11:11] LABS: GLUCOSE CHALLENGE TEST 1 HOUR 131 MG/DL (LESS THAN 140)
== END ==
LOC: M LAB 11:45
DX: Z34.82 Encounter for supervision of other normal pregnancy, second trimester (principal); Z3A.00 Weeks of gestation of pregnancy not specified
CPT/HCPCS: 82950

== ENCOUNTER → 2018-06-15 | Outpatient (REF) | payer OTHER | LOC: M LAB REF 12:49 | DX: Z34.83 Encounter for supervision of other normal pregnancy, third trimester (principal) ==

== ENCOUNTER 2018-06-26 18:06 | Inpatient (IN) | payer OTHER ==
[2018-06-26 21:34] LABS: HEMATOCRIT 35.6 % (36.0-47.0); HEMOGLOBIN 12.1 g/dl (12.0-15.5); MEAN CORPUSCULAR HEMOGLOBIN 31.4 pg (27.0-33.0); MEAN CORPUSCULAR VOLUME 92.5 fl (80.0-96.0); PLATELET COUNT, AUTOMATED 291 10^3/uL (150-450); RED BLOOD COUNT 3.85 10^6/uL (4.00-5.40); RED CELL DISTRIBUTION WIDTH 13.9 % (11.5-14.5); WHITE BLOOD COUNT 12.8 10^3/uL (4.0-10.0)
[2018-06-26 23:53] LABS: AMPHETAMINES URINE REFLEX NEGATIVE (NEGATIVE); BARBITURATES URINE REFLEX NEGATIVE (NEGATIVE); BENZODIAZEPINES URINE REFLEX NEGATIVE (NEGATIVE); CANNABINOIDS URINE REFLEX NEGATIVE (NEGATIVE); COCAINE METABOLITE URINE REFLE NEGATIVE (NEGATIVE); METHADONE URINE REFLEX NEGATIVE (NEGATIVE); OPIATES URINE REFLEX NEGATIVE (NEGATIVE); PHENCYCLIDINE URINE REFLEX NEGATIVE (NEGATIVE)
[2018-06-27] MEDS: PRENATAL VITAMINS CHEWABLE TABLET PO (09:00)
[2018-06-27] MEDS ORDERED: OXYTOCIN 30 UNITS IN 0.9% NaCl 500ML IV BAG (J2590) As Ordered (11:41)
[2018-06-27] MEDS ORDERED: FENTANYL 2MCG/ML ROPIVACAINE 0.2% IN 0.9% NACL 200ML IVBAG As Ordered (14:07)
[2018-06-27] MEDS ORDERED: EPIDURAL COMMENT XX (15:00)
[2018-06-27] MEDS: FENTANYL/ROPIVACAINE/NACL BAG 200 ML EPIDURAL (15:00)
[2018-06-27] MEDS ORDERED: NALOXONE INJ 0.4 MG/1 ML VIAL (J2310) IV (15:00)
[2018-06-27] MEDS ORDERED: diphenhydrAMINE INJ 50MG/ML VIAL (J1200) IV (15:00)
[2018-06-27] MEDS ORDERED: ONDANSETRON 4MG/2ML VIAL (J2405) IV (15:00)
[2018-06-27] MEDS ORDERED: EPIDURAL/PCA KEYS XX (15:00)
[2018-06-27] MEDS ORDERED: REFRIGERATOR IV KEYS XX (15:00)
[2018-06-27] MEDS ORDERED: ePHEDrine SULFATE 25 MG/5 ML(5MG/ML) SYRINGE IV (15:00)
[2018-06-27] MEDS: LR 1,000 ML IV (15:22)
[2018-06-27] MEDS: LACTATED RINGER'S 1000 ML IV (15:22)
[2018-06-27] MEDS: OXYTOCIN DRIP 30 UNITS in APPROPRIATE DILUENT 1 EA IV ×2 (15:22→17:26)
[2018-06-27] MEDS ORDERED: METHYLERGONOVINE MALEATE 0.2 MG TAB PO (17:30)
[2018-06-27] MEDS ORDERED: ACETAMINOPHEN 500 MG TAB PO (17:30)
[2018-06-27] MEDS ORDERED: DIBUCAINE 1% OINTMENT 30GM TOP (17:30)
[2018-06-27] MEDS ORDERED: DOCUSATE SODIUM 100 MG CAP PO (17:30)
[2018-06-28] MEDS: PRENATAL VITAMINS CHEWABLE TABLET PO (07:43)
[2018-06-28] MEDS: IBUPROFEN 800 MG TAB PO ×2 (07:44→18:38)
[2018-06-28] MEDS: RHOGAM 300 MCG (1500 IU) INJ (J2790) IM (12:43)
[2018-06-28] MEDS: MEASLES,MUMPS,RUBELLA VACCINE INJ (MMR-II) (90707) SC (12:43)
[2018-06-29] MEDS: PRENATAL VITAMINS CHEWABLE TABLET PO (08:58)
[2018-06-29] MEDS: IBUPROFEN 800 MG TAB PO (11:08)
== END 2018-06-29 12:40 | disposition home or self-care (01) | DRG 807 ==
LOC: M LDO 18:06 → M OBS 06-27 19:48 → M LDI 20:07
PROC: 10E0XZZ Delivery of Products of Conception, External Approach (ICD-10-PCS; principal; 2018-06-27)
DX: O80 Encounter for full-term uncomplicated delivery (principal); Z37.0 Single live birth; Z3A.38 38 weeks gestation of pregnancy

== ENCOUNTER → 2019-01-28 | Outpatient (REF) | payer MEDICAID, OTHER ==
[~2019-01-28] MED LIST changes: +IBUP-1114 PO; +MACR100C43 PO; +PYRI1TAB5 PO; +TUMS500C PO
[2019-01-28 22:35] LABS: APPEARANCE, URINE HAZY (CLEAR); BACTERIA, URINE AUTO 1+ (NEGATIVE); BILIRUBIN, URINE AUTO NEGATIVE (NEGATIVE); BLOOD, URINE BLOOD 3+ (NEGATIVE); COLOR, URINE YELLOW (YELLOW); GLUCOSE, URINE (UA) AUTO NEGATIVE (NEGATIVE); KETONE, URINE AUTO NEGATIVE (NEGATIVE); LEUKOCYTE ESTERASE, URINE AUTO 1+ (NEGATIVE); MUCUS, URINE SMALL (NEGATIVE); NITRITE, URINE AUTO NEGATIVE (NEGATIVE); PROTEIN, URINE AUTO 1+ mg/dL (NEGATIVE); RBC, URINE AUTO TNTC /HPF (0-3); SPECIFIC GRAVITY URINE AUTO 1.021 (1.002-1.035); SQUAMOUS EPITHELIAL CELL UR AU 1 /HPF (0-6); UROBILINOGEN, URINE AUTO 0.2 mg/dL (0.0-2.0); WBC, URINE AUTO 56 /HPF (0-3)
== END ==
LOC: M LAB REF 10:38
PROVIDERS: ATTEND Physician Assistant
DX: N39.0 Urinary tract infection, site not specified (principal)

== ENCOUNTER → 2019-02-01 | Outpatient (REF) | payer MEDICAID ==
[2019-02-01 15:37] LABS: CHLAMYDIA DNA AMPLIFICATION NEGATIVE (NEGATIVE); GC DNA AMPLIFICATION NEGATIVE (NEGATIVE)
== END ==
LOC: M SFHCWAGY 13:34
PROVIDERS: ATTEND Family Medicine
DX: Z11.3 Encounter for screening for infections with a predominantly sexual mode of transmission (principal)

== ENCOUNTER 2019-02-26 00:47 | Emergency (ER) | payer MEDICAID ==
[~2019-02-26] VITALS: Ht 170.2 cm; Wt 72.3 kg
[2019-02-26 00:47] VITALS: BP 133/79
== END 2019-02-26 03:00 | disposition left against medical advice (07) ==
LOC: M ED 00:47
DX: R51 Headache (principal); Z53.21 Procedure and treatment not carried out due to patient leaving prior to being seen by health care provider

== ENCOUNTER 2019-02-28 02:38 | Emergency (ER) | payer MEDICAID, OTHER ==
[~2019-02-28] VITALS: Ht 170.2 cm; Wt 72.7 kg
[2019-02-28] MEDS ORDERED: CLEO300C2 PO (02:42)
[2019-02-28] MEDS ORDERED: NORC1TAB7 PO (02:58)
[2019-02-28] MEDS ORDERED: KETO10TAB PO (02:58)
[2019-02-28 02:59] VITALS: BP 141/87
[2019-02-28] MEDS ORDERED: KETOROLAC 60 MG/2 ML VIAL (J1885) IM ONE (03:00)
[2019-02-28] MEDS ORDERED: NORCO 5/325MG TABLET (BULK FOR ED) PO ONE (03:00)
== END 2019-02-28 03:17 | disposition home or self-care (01) ==
LOC: M ED 02:38
DX: K04.7 Periapical abscess without sinus (principal); Z91.040 Latex allergy status; F17.210 Nicotine dependence, cigarettes, uncomplicated
CPT/HCPCS: 96372; 99283; J1885

== ENCOUNTER → 2019-06-17 | Outpatient (CLI) | payer MEDICAID ==
[~2019-06-17] MED LIST changes: +CLEO300C2 PO; +KETO10TAB PO; +NORC1TAB7 PO
== END ==
LOC: M LAB 12:05
PROVIDERS: ATTEND Advanced Practice Midwife
DX: O20.0 Threatened abortion (principal)

== ENCOUNTER → 2019-06-18 | Outpatient (CLI) | payer MEDICAID ==
--- NOTE | 2019-06-18 17:32 | REP ---
FIRST TRIMESTER ULTRASOUND: Real-time sonographic evaluation of the pelvis was performed utilizing transabdominal and endovaginal technique. Intrauterine gestational sac is present and surrounding decidual reaction. No yolk sac or pole is seen. The mean sac diameter is 14 mm corresponding to an estimated gestational age of 6 weeks 1 day. Right ovary measures 4.5 x 2.7 x 5.2 cm and contains a cystic structure 3.5 x 1.9 x 3.2 cm. This may represent a corpus luteum. The patient has had a prior left salpingo-oophorectomy. There is no right ovarian torsion. There is no other evidence of adnexal mass or free fluid. Differential diagnosis would include blighted ovum, very early intrauterine or ectopic . Suggest correlation with serial quantitaive beta HCG values and followup ultrasound as necessary. Electronically Signed by Ian Castillo MD 06/20/2019 08:57 A
== END ==
LOC: M RAD 14:29
PROVIDERS: ATTEND Advanced Practice Midwife
DX: O20.0 Threatened abortion (principal)

== ENCOUNTER → 2019-06-19 | Outpatient (CLI) | payer MEDICAID | LOC: M LAB 16:08 | PROVIDERS: ATTEND Advanced Practice Midwife | DX: O20.0 Threatened abortion (principal); Z3A.00 Weeks of gestation of pregnancy not specified ==

== ENCOUNTER → 2019-06-26 | Outpatient (CLI) | payer MEDICAID | LOC: M LAB 13:45 | PROVIDERS: ATTEND Advanced Practice Midwife | DX: O03.4 Incomplete spontaneous abortion without complication (principal) ==

== ENCOUNTER → 2019-07-03 | Outpatient (CLI) | payer MEDICAID | LOC: M LAB 12:21 | PROVIDERS: ATTEND Advanced Practice Midwife | DX: O03.4 Incomplete spontaneous abortion without complication (principal) ==

== ENCOUNTER → 2020-03-19 | Outpatient (REF) | payer MEDICAID | LOC: M SFHCWAGY 10:25 | PROVIDERS: ATTEND Advanced Practice Midwife | DX: Z12.4 Encounter for screening for malignant neoplasm of cervix (principal); R87.612 Low grade squamous intraepithelial lesion on cytologic smear of cervix (LGSIL) ==

== ENCOUNTER → 2020-03-23 | Outpatient (CLI) | payer MEDICAID, OTHER ==
[2020-03-23 10:18] LABS: HEMATOCRIT 43.7 % (36.0-47.0); HEMOGLOBIN 14.2 g/dl (12.0-15.5); MEAN CORPUSCULAR HEMOGLOBIN 30.3 pg (27.0-33.0); MEAN CORPUSCULAR HGB CONC 32.5 g/dl (32.0-36.5); MEAN CORPUSCULAR VOLUME 93.2 fl (80.0-96.0); PLATELET COUNT, AUTOMATED 270 10^3/uL (150-450); RED BLOOD COUNT 4.69 10^6/uL (4.00-5.40); WHITE BLOOD COUNT 7.9 10^3/uL (4.0-10.0)
[2020-03-23 10:57] LABS: ALBUMIN 4.1 GM/DL (3.2-5.2); ALT/SGPT 18 U/L (12-78); BILIRUBIN,TOTAL 0.6 MG/DL (0.2-1.0); BLOOD UREA NITROGEN 15 MG/DL (7-18); CALCIUM LEVEL 8.9 MG/DL (8.5-10.1); CARBON DIOXIDE LEVEL 26 MEQ/L (21-32); CHLORIDE LEVEL 112 MEQ/L (98-107); CHOLESTEROL LEVEL 129 MG/DL (<200); CHOLESTEROL RISK RATIO 2.224 (<5); CREATININE FOR GFR 0.83 MG/DL (0.55-1.30); GLOMERULAR FILTRATION RATE > 60.0 (>60); GLUCOSE, FASTING 89 MG/DL (70-100); HDL CHOLESTEROL 58 MG/DL (>40); LDL CHOLESTEROL 64 MG/DL (<100); NON-HDL-C 71 MG/DL; POTASSIUM SERUM 4.5 MEQ/L (3.5-5.1); SODIUM LEVEL 140 MEQ/L (136-145); TOTAL PROTEIN 7.3 GM/DL (6.4-8.2); TRIGLYCERIDES LEVEL 35 MG/DL (<150)
== END ==
LOC: M LAB 09:51
PROVIDERS: ATTEND Advanced Practice Midwife
DX: Z01.419 Encounter for gynecological examination (general) (routine) without abnormal findings (principal)

== ENCOUNTER → 2020-05-31 | Outpatient (CLI) | payer OTHER ==
[~2020-05-31] MED LIST changes: +ALLE60TA69 PO; +FISH1000 PO; +PRIMROSE OIL
== END ==
LOC: M LABSMTC 09:08
PROVIDERS: ATTEND Anesthesiology
DX: Z01.818 Encounter for other preprocedural examination (principal); Z11.59 Encounter for screening for other viral diseases; Z20.828 Contact with and (suspected) exposure to other viral communicable diseases
CPT/HCPCS: C9803; U0003

== ENCOUNTER 2020-06-05 12:01 | Day surgery (SDC) | payer OTHER ==
[~2020-06-05] VITALS: Ht 172.7 cm; Wt 73.9 kg
[~2020-06-05 12:01] MED LIST changes: +LR 1,000 ML IV ONE
[2020-06-05 12:59] LABS: HEMOGLOBIN 14.6 g/dl (12.0-15.5); MEAN CORPUSCULAR HEMOGLOBIN 30.9 pg (27.0-33.0); MEAN CORPUSCULAR VOLUME 90.9 fl (80.0-96.0); PLATELET COUNT, AUTOMATED 309 10^3/uL (150-450); RED BLOOD COUNT 4.73 10^6/uL (4.00-5.40); WHITE BLOOD COUNT 8.6 10^3/uL (4.0-10.0)
[2020-06-05] MEDS ORDERED: BUPIVACAINE HCL 0.5% 10ML VIAL As Ordered ONE (13:14)
[2020-06-05] MEDS ORDERED: BUPIVACAINE HCL 0.25% 10ML VIAL As Ordered ONE (13:19)
[2020-06-05] MEDS ORDERED: ONDANSETRON 4MG/2ML VIAL As Ordered ONE (13:36)
[2020-06-05] MEDS ORDERED: propofoL 200 MG/20 ML VIAL As Ordered ONE (13:36)
[2020-06-05] MEDS ORDERED: fentaNYL 100 MCG/2 ML INJECTION (J3010) As Ordered ONE (13:36)
[2020-06-05] MEDS ORDERED: ROCURONIUM BROMIDE 50 MG/5 ML VIAL As Ordered ONE (13:36)
[2020-06-05] MEDS ORDERED: MIDAZOLAM INJ 2MG/2ML VIAL (J2250 PER 1MG) As Ordered ONE (13:36)
[2020-06-05] MEDS ORDERED: LIDOCAINE 2% 100MG/5ML SDV (FOR ANES.) As Ordered ONE (13:36)
[2020-06-05] MEDS ORDERED: dexameTHASONE 4 MG/ML 1ML VIAL (J1100 PER 1MG) As Ordered ONE (13:36)
[2020-06-05] MEDS ORDERED: HYDROmorphone HCL 2 MG/ML 1ML VIAL (J1170) As Ordered ONE (13:40)
[2020-06-05] MEDS ORDERED: SUGAMMADEX SODIUM 500 MG/5 ML VIAL (BRIDION) As Ordered ONE (14:08)
[2020-06-05] MEDS ORDERED: ACETAMINOPHEN 1000MG 100ML IV BTL (OFIRMEV) (J0131 PER 10MG) As Ordered ONE (14:08)
[2020-06-05] MEDS ORDERED: KETOROLAC 60MG 2ML VIAL As Ordered ONE (14:08)
[2020-06-05] MEDS ORDERED: ePHEDrine SULFATE 25 MG/5 ML(5MG/ML) SYRINGE As Ordered ONE (14:21)
[2020-06-05] MEDS ORDERED: fentaNYL 100 MCG/2 ML INJECTION (J3010) IV PRN (15:00)
[2020-06-05] MEDS ORDERED: oxyCODONE 5MG TAB PO PRN (15:00)
[2020-06-05] MEDS ORDERED: PERCOCET 5MG/325MG TAB PO PRN (15:00)
[2020-06-05] MEDS ORDERED: LR 1,000 ML IV SCH (15:00)
[2020-06-05] MEDS ORDERED: ONDANSETRON 4MG/2ML VIAL IV PRN (15:00)
[2020-06-05] MEDS ORDERED: HYDROMORPHONE HCL 0.5 MG/ 0.5 ML SYRINGE (J1170 PER 1) IV PRN (15:00)
[2020-06-05 16:50] VITALS: BP 130/76
--- NOTE | 2020-06-22 09:28 | RO ---
DATE OF OPERATION: 06/05/2020 PREOPERATIVE DIAGNOSIS: Undesired fertility. POSTOPERATIVE DIAGNOSIS: Undesired fertility. PROCEDURE: Laparoscopic bilateral salpingectomy. SURGEON: Shen Cuevas MD CAPACITOR TESTER: __ ANESTHESIA: General endotracheal. ESTIMATED BLOOD LOSS: 10 mL. URINE OUTPUT: Not assessed. FINDINGS: Normal uterus, fallopian tubes. Surgically absent left ovary. Normal upper abdomen. OPERATIVE SUMMARY: The patient was taken to the operating room where general endotracheal anesthesia was induced. She was prepped and draped in sterile fashion in the dorsal lithotomy position. A sponge stick was placed in the vagina to use as a manipulator. A periumbilical incision was made with the scalpel. A Veress needle was placed through this incision while tenting up the skin of the abdomen. Intraabdominal location of the Veress needle was assessed using saline-filled syringe. A pneumoperitoneum was created. The Veress needle was removed. A 5 mm trocar using VisiPort was inserted through this incision. A 5 and 8 mm suprapubic port was placed under direct visualization. Grasping instruments were used to elevate the fallopian tubes. Broad ligament attachments to the tube were coagulated and incised using LigaSure. The tubes were then amputated near their origins. Both tubes were removed through the suprapubic port. Pneumoperitoneum was released. All instruments were removed. The skin was closed with 4-0 Monocryl subcuticular sutures. The patient was extubated and went to recovery room in stable condition. [facility] HOSPITALСергей
== END 2020-06-05 16:50 | disposition home or self-care (01) ==
LOC: M SDC 12:01
PROVIDERS: ATTEND Specialist
DX: Z30.2 Encounter for sterilization (principal); J45.909 Unspecified asthma, uncomplicated; Z79.899 Other long term (current) drug therapy; Z91.040 Latex allergy status
CPT/HCPCS: 36415; 58661; 81025; 85027; 88302; J0131; J1100; J1170; J1885; J2250; J2405; J3010

== ENCOUNTER → 2020-12-07 | Outpatient (REF) | payer OTHER ==
[~2020-12-07] MED LIST changes: -LR 1,000 ML IV ONE
== END ==
LOC: M SFHCWAGY 13:35
PROVIDERS: ATTEND Specialist
DX: Z01.419 Encounter for gynecological examination (general) (routine) without abnormal findings (principal)

== ENCOUNTER → 2021-04-14 | Outpatient (CLI) | payer OTHER | LOC: M LABSMTC 10:25 | PROVIDERS: ATTEND Anesthesiology | DX: Z01.818 Encounter for other preprocedural examination (principal); Z11.52 Encounter for screening for COVID-19 ==

== ENCOUNTER 2021-04-19 12:33 | Day surgery (SDC) | payer OTHER ==
[~2021-04-19] VITALS: Ht 170.2 cm; Wt 77.0 kg
[~2021-04-19 12:33] MED LIST changes: +LIDOCAINE 1% MDV 20ML VIAL SQ PRN; +LR 1,000 ML IV ONE
[2021-04-19] MEDS ORDERED: MIDAZOLAM INJ 2MG/2ML VIAL (J2250 PER 1MG) As Ordered ONE (13:34)
[2021-04-19] MEDS ORDERED: fentaNYL 100 MCG/2 ML INJECTION (J3010) As Ordered ONE (13:35)
[2021-04-19] MEDS ORDERED: LIDOCAINE 2% 100MG/5ML SDV (FOR ANES.) As Ordered ONE (13:35)
[2021-04-19] MEDS ORDERED: propofoL 200 MG/20 ML VIAL As Ordered ONE ×2 (13:39→14:45)
[2021-04-19] MEDS ORDERED: SCOPOLAMINE 1MG TRANSDERMAL PATCH TOP ONE (14:05)
[2021-04-19] MEDS ORDERED: LIDOCAINE W/EPINEPHRINE 1% 20ML VIAL As Ordered ONE (14:06)
--- NOTE | 2021-04-19 14:11 | ROOPDOC ---
[facility] Report Of Operation Report of Operation DATE OF PROCEDURE: 04/19/21 PREPROCEDURE DIAGNOSES: Recurrent high-grade cervical dysplasia. POSTPROCEDURE DIAGNOSES: Same. PROCEDURE PERFORMED: Loop electrode excision procedure of the cervix (LEEP). SURGEON: Wai Louis MD ANESTHESIA: Local with sedation. ESTIMATED BLOOD LOSS: Approximately 20 mL. COMPLICATIONS: None. FINDINGS: Shortened cervix with evidence of prior surgery. SPECIMENS REMOVED: Cervical stroma DESCRIPTION OF PROCEDURE: The patient was taken to the operating room where IV sedation was given. She was prepped and draped in a sterile fashion in the dorsal lithotomy position. A speculum with smoke valve was placed in the vagina. The cervix was prepped with Betadine. The anterior lip of the cervix was grasped with a tenaculum. The cervix was injected circumferentially with 20 cc of a dilute solution containing 1% lidocaine and epinephrine. An 12 x 25 mm loop was utilized. Setting was 90 W. A single pass was obtained through the cervix. The specimen was removed. The base of the cervix was coagulated with ball electrocoagulation. Monsel's solution was applied. Good hemostasis was noted. All instruments were removed. Sponge and instrument counts were correct. WAI LOUIS MD Apr 19, 2021 14:11
[2021-04-19] MEDS ORDERED: ONDANSETRON 4MG/2ML VIAL As Ordered ONE (14:31)
[2021-04-19] MEDS ORDERED: ACETAMINOPHEN 1000MG 100ML IV BTL (OFIRMEV) (J0131 PER 10MG) As Ordered ONE (14:34)
[2021-04-19] MEDS ORDERED: KETOROLAC 60MG 2ML VIAL As Ordered ONE (14:44)
[2021-04-19 16:00] VITALS: BP 118/63
== END 2021-04-19 16:00 | disposition home or self-care (01) ==
LOC: M SDC 12:33
PROVIDERS: ATTEND Specialist
DX: D06.9 Carcinoma in situ of cervix, unspecified (principal); Z91.040 Latex allergy status; F17.218 Nicotine dependence, cigarettes, with other nicotine-induced disorders; J45.909 Unspecified asthma, uncomplicated; Z79.899 Other long term (current) drug therapy
CPT/HCPCS: 57460; 88307; J0131; J1885; J2250; J2405; J3010

== ENCOUNTER → 2021-12-06 | Outpatient (CLI) | payer OTHER ==
[~2021-12-06] MED LIST changes: -LIDOCAINE 1% MDV 20ML VIAL SQ PRN; -LR 1,000 ML IV ONE
[2021-12-06 13:33] LABS: BASO % 0.3 % (0.0-1.0); EOS # 0.1 10^3/uL (0.0-0.5); EOS % 1.4 % (0.0-3.0); HEMATOCRIT 43.3 % (36.0-47.0); LYMPH # 2.8 10^3/uL (1.5-5.0); LYMPH % 30.8 % (24.0-44.0); MEAN CORPUSCULAR HEMOGLOBIN 30.3 pg (27.0-33.0); MEAN CORPUSCULAR HGB CONC 32.3 g/dl (32.0-36.5); MEAN CORPUSCULAR VOLUME 93.7 fl (80.0-96.0); MONO # 0.8 10^3/uL (0.0-0.8); MONO % 8.4 % (2.0-8.0); NEUTROPHILS # 5.4 10^3/uL (1.5-8.5); NEUTROPHILS % 58.8 % (36.0-66.0); PLATELET COUNT, AUTOMATED 308 10^3/uL (150-450); RED BLOOD COUNT 4.62 10^6/uL (4.00-5.40); WHITE BLOOD COUNT 9.2 10^3/uL (4.0-10.0)
[2021-12-06 14:20] LABS: ALT/SGPT 25 U/L (12-78); BLOOD UREA NITROGEN 15 MG/DL (7-18); CALCIUM LEVEL 9.6 MG/DL (8.5-10.1); CARBON DIOXIDE LEVEL 25 MEQ/L (21-32); CHLORIDE LEVEL 110 MEQ/L (98-107); CREATININE FOR GFR 0.93 MG/DL (0.55-1.30); GLOMERULAR FILTRATION RATE > 60.0 (>60); GLUCOSE, FASTING 87 MG/DL (70-100); POTASSIUM SERUM 4.4 MEQ/L (3.5-5.1); SODIUM LEVEL 141 MEQ/L (136-145)
[2021-12-06 14:21] LABS: ALBUMIN 4.4 GM/DL (3.2-5.2); BILIRUBIN,TOTAL 0.4 MG/DL (0.2-1.0); CHOLESTEROL LEVEL 141 MG/DL (<200); CHOLESTEROL RISK RATIO 2.203 (<5); FREE T4 1.14 NG/DL (0.76-1.46); HDL CHOLESTEROL 64 MG/DL (>40); LDL CHOLESTEROL 69 MG/DL (<100); NON-HDL-C 77 MG/DL; TOTAL PROTEIN 7.5 GM/DL (6.4-8.2); TRIGLYCERIDES LEVEL 39 MG/DL (<150)
== END ==
LOC: M PLAIMG 09:29
PROVIDERS: ATTEND Physician Assistant
DX: R63.5 Abnormal weight gain (principal)

== ENCOUNTER → 2022-02-21 | Outpatient (REF) | payer OTHER | LOC: M SFHCWAGY 10:40 | PROVIDERS: ATTEND Specialist | DX: N87.9 Dysplasia of cervix uteri, unspecified (principal) ==

== ENCOUNTER → 2022-05-05 | Outpatient (CLI) | payer OTHER | LOC: M WHC 10:06 | PROVIDERS: ATTEND Specialist | DX: N83.201 Unspecified ovarian cyst, right side (principal) ==